=== PATIENT | male | born 1960 | race Caucasian/White ===

== ENCOUNTER 2018-07-23 07:03 | Outpatient (CLI) | payer OTHER, SELFPAY ==
[2018-07-23 07:36] LABS: HCT 40.2 % (40.0-50.0); HGB 13.2 g/dL (13.5-17.5); Mean Corp. HGB Concentration 32.8 g/dL (32.0-36.0); Mean Corpuscular Hemoglobin 31.5 pg (27.0-33.0); Mean Corpuscular Volume 95.9 fL (80-95); Mean Platelet Volume 9.7 fL (8.0-11.0); Platelet Count 225 x1000/uL (130-400); RBC 4.19 m/cumm (4.50-6.00); White Blood Cell Count 6.36 k/cumm (4.4-10.8)
[2018-07-23 08:20] LABS: ALT 41 U/L (12-78); AST 22 U/L (15-37); Albumin 3.3 g/dL (3.4-5.0); Alkaline Phosphatase 76 U/L (46-116); Anion Gap 8.6 mmol/L (3-11); BUN 28 mg/dL (7-18); Bilirubin, Total 0.5 mg/dL (0.2-1.0); CO2 27.4 mmol/L (21.0-32.0); CREATININE 1.27 mg/dL (0.70-1.30); Calcium 8.9 mg/dL (8.5-10.1); Chloride 103 mmol/L (98-107); Cholesterol 199 mg/dL (50-200); Estimated GFR 58.88 (mL/min/1.73m2); Glucose 112 mg/dL (70-100); HDL Cholesterol 59 mg/dL (40-60); LDL CHOLESTEROL 114 mg/dL (<100); Potassium 4.6 mmol/L (3.5-5.1); Sodium 139 mmol/L (136-145); Total Protein 6.3 g/dL (6.4-8.2); Triglyceride 108 mg/dL (30-150)
== END 2018-07-23 07:23 ==
PROVIDERS: PCP Nurse Practitioner; Visit Provider Nurse Practitioner
DX: I10 Essential (primary) hypertension (principal)
CPT/HCPCS: 36415; 80053; 80061; 83721; 85027

== ENCOUNTER 2018-08-18 13:12 | Emergency (ER) | payer OTHER, SELFPAY ==
[2018-08-18 13:16] VITALS: BP 139/78; PULSE 90; RESP 15; TEMP 36.6; O2SAT 95
--- NOTE | 2018-08-18 13:31 | ED.GENADUL_ITS ---
Discharge Plan Disposition Patient Disposition: HOME Discharge Details Chief Complaint: RashLesion Clinical Impression: Herpes zoster Primary Care Provider: Graciela Fowler ED Provider: Benny Mitchell Home Meds and New Rx's Prescriptions: New valacyclovir 1 gram tablet 1,000 mg PO TID 7 Days Qty: 21 RF: 0 Continued hydrochlorothiazide 25 mg tablet 25 mg PO DAILY Qty: 90 RF: 3 lisinopril 40 mg tablet 40 mg PO DAILY Qty: 90 RF: 3 simvastatin 20 mg tablet 20 mg PO DAILY Qty: 90 RF: 3 fluticasone propion-salmeterol [Advair Diskus] 500-50 mcg/dose blister with device 1 inh IH BID Qty: 1 RF: 12 prednisone 10 mg tablet See Rx Instructions PO DAILY Qty: 18 RF: 0 Discharge Instructions Instructions: Shingles (ED) Additional Instructions: You may use difj-onj-ntloeft acetaminophen or Motrin for pain control. You may also apply lgip-ets-jbptcey lidocaine cream to areas of discomfort as well. Please take medication as prescribed and return for any new or significant worsening of symptoms otherwise follow-up with your primary care provider for reassessment. Referrals: Graciela Fowler, COMMUNICATIONS EXECUTIVE [Primary Care Provider] - (For reassessment as needed or if not improving) Medical Decision Making Patient presenting to the emergency department for chief complaint of rash. Patient states 3 to 4 days ago he started noting some left shoulder discomfort in his back which he thought nothing of then today he noticed a reddened erythematous rash underneath his left armpit. Patient does state history of chickenpox as a child and is concerned for herpes zoster. Physical exam is unremarkable for any musculoskeletal injury with patient having full range of motion and no point tenderness to shoulder. There is a erythematous papular rash noted underneath patient's left axilla with patient stating burning sensation and sun sensitivity of the skin radiating around to his back. Given description of symptoms I am concerned for herpes zoster so patient placed up on valacyclovir and encouraged to use tmje-noq-espgghk pain medication along with lidocaine cream for discomfort. Return precautions were discussed otherwise patient to follow-up with primary care provider as needed for reassessment. HPI General Mode of arrival: ambulatory . Date/Time Provider Initiated Documentation: 08/18/18 13:14 . Limitations to Documentation: no limitations . Information obtained by: patient and RN notes reviewed . History of Present Illness 57 year old M presents to the emergency department with the chief complaint of rash, described as moderate, with intensity rated at 5. Quality is described as aching, and is localized to the chest (left chest wall). Patient started experiencing this day(s) (1) and it has been constant. No relieving factors improve symptom(s), No exacerbating factors reported . Patient notes no other symptoms.. Patient did receive the following treatments prior to arrival, none Related Data Home Medications Medication Instructions Recorded Confirmed hydrochlorothiazide 25 mg tablet 25 mg PO DAILY #90 tab 04/23/18 08/18/18 lisinopril 40 mg tablet 40 mg PO DAILY #90 tab-cap 04/23/18 08/18/18 simvastatin 20 mg tablet 20 mg PO DAILY #90 tab-cap 18 08/18/18 fluticasone 500 mcg-salmeterol 50 1 inh IH BID #1 each 07/24/18 08/18/18 mcg/dose blistr powdr for inhalation prednisone 10 mg tablet See Rx Instructions PO DAILY #18 19 07/24/18 tab valacyclovir 1,000 mg PO TID 7 Days #21 tab 08/18/18 Previous Rx's Medication Instructions Recorded hydrochlorothiazide 25 mg tablet 25 mg PO DAILY #90 tab 04/23/18 lisinopril 40 mg tablet 40 mg PO DAILY #90 tab-cap 04/23/18 simvastatin 20 mg tablet 20 mg PO DAILY #90 tab-cap 04/23/18 fluticasone 500 mcg-salmeterol 50 1 inh IH BID #1 each 07/24/18 mcg/dose blistr powdr for inhalation prednisone 10 mg tablet See Rx Instructions PO DAILY #18 07/24/18 tab valacyclovir 1,000 mg PO TID 7 Days #21 tab 08/18/18 Allergies Allergy/AdvReac Type Severity Reaction Status Date / Time No Known Allergies Allergy Verified 08/18/18 13:21 General Stated Complaint: RashLesion CHANDRAKANT: 4 Review of Systems Constitutional Denies fever(s) and Reports malaise Cardiovascular Denies chest pain and Denies dyspnea Respiratory Denies dyspnea Musculoskeletal Reports other (left shoulder pain) Integumentary/Breasts Reports as per HPI and Denies rash PFSH Social History Smoking/Tobacco Use Status: Former Tobacco Use Alcohol Intake: current Alcohol Intake frequency: 0-2 drinks per day Alcohol type: beer Drug use: Never Substance use type: does not use current occupation: [employer] What type of physical activity do you participate in: none Do you feel safe at home: Yes Do you feel safe in your relationship?: Yes Exam Const General: cooperative, no acute distress and not ill appearing Orientation: alert, awake and oriented x3 HENMT Mouth: moist mucous membranes Resp Effort & Inspection: normal respiratory effort, able to speak in complete sentences and no respiratory distress Skin Rashes: rashes noted (Erythematous papular rash noted to left axilla ) Extrem Right upper extremity: normal to inspection, full ROM and normal capillary refill Course Vital Signs Temperature 36.6 C 08/18/18 13:16 Pulse 90 08/18/18 13:16 Respiratory Rate 15 08/18/18 13:16 Blood Pressure 139/78 08/18/18 13:16 Pulse Oximetry 95 08/18/18 13:16 Temperature 36.6 C 08/18/18 13:16 Temperature Source Temporal Artery Scan 08/18/18 13:16 Pulse 90 08/18/18 13:16 Respiratory Rate 15 08/18/18 13:16 Respiratory Effort Non-Labored 08/18/18 13:20 Blood Pressure 139/78 08/18/18 13:16 Blood Pressure Position Sitting 08/18/18 13:16 Pulse Oximetry 95 08/18/18 13:16 Pain Level 5 08/18/18 13:16
== END 2018-08-18 13:54 | disposition home or self-care (01) ==
PROVIDERS: Emergency Provider Nurse Practitioner Family; PCP Nurse Practitioner
DX: B02.9 Zoster without complications (principal)
CPT/HCPCS: 99283

== ENCOUNTER 2019-06-17 07:06 | Outpatient (CLI) | payer OTHER, SELFPAY ==
[2019-06-17 08:05] LABS: ALT 44 U/L (16-63); AST 21 U/L (15-37); Albumin 3.8 g/dL (3.4-5.0); Alkaline Phosphatase 60 U/L (46-116); Anion Gap 6.4 mmol/L (3-11); BUN 28 mg/dL (7-18); Bilirubin, Total 0.6 mg/dL (0.2-1.0); CO2 30.6 mmol/L (21.0-32.0); CREATININE 1.24 mg/dL (0.70-1.30); Calcium 9.3 mg/dL (8.5-10.1); Calculated LDL 164 mg/dL (<100); Chloride 105 mmol/L (98-107); Cholesterol 256 mg/dL (<200); Glucose 112 mg/dL (74-106); HDL Cholesterol 56 mg/dL (40-60); Potassium 4.7 mmol/L (3.5-5.1); Sodium 142 mmol/L (136-145); Total Protein 6.6 g/dL (6.4-8.2); Triglyceride 183 mg/dL (<150)
== END 2019-06-17 07:26 ==
PROVIDERS: PCP Nurse Practitioner; Visit Provider Nurse Practitioner
DX: E78.5 Hyperlipidemia, unspecified (principal); I10 Essential (primary) hypertension
CPT/HCPCS: 36415; 80053; 80061

== ENCOUNTER 2019-10-18 03:00 | Outpatient (CLI) | payer OTHER, SELFPAY ==
--- NOTE | 2019-10-18 | DI.CTLCSR_ITS ---
EXAM: CT CHEST LUNG CANCER SCREEN CLINICAL HISTORY: The patient reportedly has a History of Smoking 30 pack years and presently smokes or has quit the past 15 years, Z87.891. TECHNIQUE: Imaging Protocol: Axial computed tomography images with coronal and sagittal reformatted images were created and reviewed. Low-dose screening protocol. COMPARISON: CR CHEST 2 VIEWS PA,LAT from 08/07/2015 FINDINGS: Tracheobronchial tree: Patent where visualized. Mediastinum and Nathalie: No dominant adenopathy or fluid collection. Pulmonary parenchyma: No consolidation or dominant measurable mass. Mild basilar scarring. Bleb near the right lung base. Lung Nodules: None. Pleura: No effusion or pneumothorax. Heart: The heart is not dilated. Moderate coronary artery calcifications are seen. Aorta: Ascending aorta measures 4.2 cm. Descending aorta normal diameter. Upper abdomen: Left renal cysts. Bones: Degenerative disc changes in the thoracic spine. Soft Tissues: Unremarkable. IMPRESSION: Normal low dose CT lung screening Lung RADS Cat 1 - Negative: No nodules and definitely benign nodules Lung-RADS 1.0 CATEGORIES: Category 0 - Prior chest CT exam(s) being located for comparison. Category 1 - Annual screening in 12 months. No nodules or definitely benign nodules. Category 2 - Annual screening in 12 months. Benign appearance. Nodules with low likelihood of becomin g active cancer. Category 3 - 6-month follow-up. Probably benign. Short-term follow-up suggested. Nodules with low lik elihood of becoming active cancer. Category 4A - 3-month follow-up and CT/PET if >8 mm in size. Suspicious finding. Findings which requi re additional testing. Category 4B - Findings which require additional testing and tissue sampling. Suspicious finding. C Added to Any of the Above - History of prior lung cancer screening. S Added to Any of the Above - Significant unexpected other finding. RADIATION DOSE DELIVERED: 91.61mGy.cm Total DLP DATA REPOSITORY: All CT scans at this facility are submitted to the National Radiology Data Registry (NRDR) Dose Index Registry (DIR) with the [employer] (A[employer]). RADIATION OPTIMIZATION: All CT scans at this facility use at least one of these dose optimization te chniques: automated exposure control; mA and/or kV adjustment per patient size (includes targeted exa ms where dose is matched to clinical indication); or iterative reconstruction.
== END 2019-10-18 03:20 ==
PROVIDERS: PCP Nurse Practitioner; Visit Provider Internal Medicine
DX: Z12.2 Encounter for screening for malignant neoplasm of respiratory organs (principal); Z87.891 Personal history of nicotine dependence
CPT/HCPCS: G0297

== ENCOUNTER 2020-07-22 04:30 | Outpatient (CLI) | payer BC, SELFPAY ==
[2020-07-22 09:07] LABS: HCT 44.4 % (40.0-50.0); HGB 14.8 g/dL (13.5-17.5); MCH 32.2 pg (27.0-33.0); MCHC 33.3 % (32.0-36.0); MCV 96.7 fL (80-95); MPV 9.7 fL (8.0-11.0); Platelet Count 178 10^3/uL (130-400); RBC 4.59 10^6/uL (4.36-5.78); RDW 12.6 % (11.8-14.1); RDW-SD 45.1 fL; WBC 5.75 10^3/uL (4.4-10.8)
[2020-07-22 09:40] LABS: Hemoglobin A1C 5.7 % (<5.7)
[2020-07-22 09:58] LABS: ALT 59 U/L (16-63); AST 31 U/L (15-37); Albumin 3.8 g/dL (3.4-5.0); Alkaline Phosphatase 63 U/L (46-116); Anion Gap 6.4 mmol/L (3-11); BUN 26 mg/dL (7-18); Bilirubin, Total 0.6 mg/dL (0.2-1.0); CO2 31.6 mmol/L (21.0-32.0); CREATININE 1.1 mg/dL (0.70-1.30); Calcium 9.1 mg/dL (8.5-10.1); Calculated LDL 105 mg/dL (<100); Chloride 104 mmol/L (98-107); Cholesterol 191 mg/dL (<200); Glucose 104 mg/dL (74-106); HDL Cholesterol 61 mg/dL (40-60); Potassium 5.1 mmol/L (3.5-5.1); Sodium 142 mmol/L (136-145); Total Protein 6.8 g/dL (6.4-8.2); Triglyceride 127 mg/dL (<150)
== END 2020-07-22 04:31 | disposition home or self-care (01) ==
LOC: LBO 04:30
PROVIDERS: PCP Nurse Practitioner; Visit Provider Nurse Practitioner
DX: E11.9 Type 2 diabetes mellitus without complications (principal); I10 Essential (primary) hypertension; E78.5 Hyperlipidemia, unspecified; G47.33 Obstructive sleep apnea (adult) (pediatric); J44.9 Chronic obstructive pulmonary disease, unspecified
CPT/HCPCS: 36415; 80053; 80061; 85027; 83036

== ENCOUNTER 2020-08-06 01:49 | Outpatient (CLI) | payer BC, SELFPAY ==
[2020-08-07 17:31] LABS: COVID-19 RT-PCR UVMMC Result Negative (Negative)
== END 2020-08-06 01:50 | disposition home or self-care (01) ==
LOC: LBO 01:49
PROVIDERS: PCP Nurse Practitioner; Visit Provider Nurse Practitioner
DX: Z20.822 Contact with and (suspected) exposure to COVID-19 (principal)
CPT/HCPCS: U0003

== ENCOUNTER 2021-12-07 03:28 | Outpatient (CLI) | payer BC, SELFPAY ==
[2021-12-07 08:54] LABS: Hemoglobin A1C 5.9 % (<5.7)
[2021-12-07 10:19] LABS: ALT 48 U/L (16-63); AST 30 U/L (15-37); Albumin 3.8 g/dL (3.4-5.0); Alkaline Phosphatase 54 U/L (46-116); Anion Gap 11.4 mmol/L (3-11); BUN 34 mg/dL (7-18); Bilirubin, Total 0.7 mg/dL (0.2-1.0); CO2 25.6 mmol/L (21.0-32.0); CREATININE 1.3 mg/dL (0.70-1.30); Calcium 9.5 mg/dL (8.5-10.1); Calculated LDL 143 mg/dL (<100); Chloride 102 mmol/L (98-107); Cholesterol 237 mg/dL (<200); Glucose 102 mg/dL (74-106); HDL Cholesterol 61 mg/dL (40-60); Potassium 4.4 mmol/L (3.5-5.1); Sodium 139 mmol/L (136-145); Total Protein 6.9 g/dL (6.4-8.2); Triglyceride 169 mg/dL (<150)
== END 2021-12-07 03:29 | disposition home or self-care (01) ==
LOC: LBO 03:29
PROVIDERS: PCP Nurse Practitioner; Visit Provider Nurse Practitioner
DX: E78.5 Hyperlipidemia, unspecified (principal); I10 Essential (primary) hypertension; R73.09 Other abnormal glucose; Z68.39 Body mass index [BMI] 39.0-39.9, adult; E11.9 Type 2 diabetes mellitus without complications
CPT/HCPCS: 36415; 80053; 80061; 83036

== ENCOUNTER 2023-02-24 02:34 | Outpatient (CLI) | payer BC, SELFPAY ==
[2023-02-24] MEDS: Levalbuterol HFA 15 GM INH 4 PUFF IH (16:35)
[2023-02-24] MEDS: Inhaler, Assist Device 1 EACH MC (16:35)
--- NOTE | 2023-02-27 13:55 | W.PFT ---
Date of service: 02/24/23 Time of Service: 15:20 Pulmonary Function Test Result Indications: COPD Interpretation Spirometry: There is severe airflow limitation. There is not a 200cc increase in FEV1, but there was a 12% increase. Lung Volumes: There is significant air trapping Diffusion Capacity: Mildly reduced diffusion Airway Pressure: Increased airways resistance Impression Severe airflow obstruction with air trapping and a reduced diffusion which can be seen in COPD with emphysema. Clinical Correlation therefore is recommended.
== END 2023-02-24 02:35 | disposition home or self-care (01) ==
LOC: RT 02:36
PROVIDERS: PCP Nurse Practitioner; Visit Provider Physician Assistant Surgical
DX: J44.9 Chronic obstructive pulmonary disease, unspecified (principal)
CPT/HCPCS: 94060; 94726; 94729

== ENCOUNTER 2025-04-05 13:03 | Observation (INO) | payer OTHER, SELFPAY ==
[2025-04-05] VITALS (47 sets, daily range): BP systolic 106–215; BP diastolic 56–177; PULSE 68–102; RESP 13–23; TEMP 36.7–37.2; O2SAT 84–99
--- NOTE | 2025-04-05 13:45 | DI.RAD_ITS ---
Exam(s) XR CHEST 2V PA LATERAL EXAM: XR CHEST 2V PA LATERAL CLINICAL HISTORY: shortness of breath, fever. TECHNIQUE: 2D digital imaging was performed. COMPARISON: CR,XR XR CHEST 2V PA LATERAL from 06/04/2022 FINDINGS: 2 views: Chest leads in place. Heart size is normal. The mediastinum is not widened. Mild increased markings in the lower right lung field compound by overlying rib shadows. Minimal increased markings in left lung base. Slight blunting of left costophrenic angle may indicate a small amount of pleural fluid. No pulmonary edema. No pneumothorax. No fractures evident. IMPRESSION: Mild increased right lung markings may represent mild subtle infiltrate in the lower right lung field. No obvious ipsilateral pleuraleffusion. Mild blunting of the opposite-left costophrenic angle which may indicate a small amount left pleural fluid. DATA REPOSITORY: RADIATION DOSE DELIVERED:
--- NOTE | 2025-04-05 13:45 | RT.EKG_ITS ---
APPROVED REPORT Exam: Resting ECG Reason for Exam: shortness of breath, weakness Patient Location: E HR:83 bpm ECG Measurements Heart Rate 83 AXIS UT 156 P 49 QRSd 88 QRS 210 QT 350 T 52 QTc 411 Conclusion Sinus rhythm...normal P axis, V-rate 60- 99 Inferior infarct, old...Q >35mS, II III aVF No STEMI
[2025-04-05 14:17] LABS: COVID-19 PCR Negative (Negative); RSV PCR Negative (Negative)
[2025-04-05 14:26] LABS: Abs Immature Grans 0.02 10^3/uL (0.0-0.06); HCT 43.8 % (40.0-50.0); HGB 14.9 g/dL (13.5-17.5); Immature Grans % 0.2 %; MCH 31.6 pg (27.0-33.0); MCHC 34.0 % (32.0-36.0); MCV 93 fL (80-95); MPV 9.8 fL (8.0-11.0); Platelet Count 167 10^3/uL (130-400); RBC 4.71 10^6/uL (4.36-5.78); RDW 12.4 % (11.8-14.1); RDW-SD 42.9 fL; WBC 9.02 10^3/uL (4.4-10.8)
[2025-04-05 14:27] LABS: BE (Venous) 7 mmol/L (-2-3); HCO3 (Venous) 31 mmol/L (23-28); O2 Sat (Venous) 60 %; TCO2 (Venous) 28 mmol/L (24-29); pCO2 (Venous) 51 mmHg (41-51); pO2 (Venous) 30 mmHg
[2025-04-05] MEDS: Normal Saline 500 ML IV (14:33)
[2025-04-05] MEDS: Acetaminophen 500 MG TAB PO (14:33)
[2025-04-05] MEDS: Albuterol/Ipratropium 3 ML UPD VIAL 6 ML UPD (14:34)
[2025-04-05] MEDS: methylPREDNISolone SUCC 125 MG VIAL IVP (14:34)
[2025-04-05 14:47] LABS: Troponin I 8 ng/L (<54)
[2025-04-05 14:49] LABS: ALT 32 U/L (10-49); AST 30 U/L (<34); Albumin 4.3 g/dL (3.2-5.0); Alkaline Phosphatase 70 U/L (46-116); Anion Gap 6.5 mmol/L (3-11); BUN 18 mg/dL (9-23); Bilirubin, Total 0.50 mg/dL (0.2-1.2); CO2 30.5 mmol/L (20.0-31.0); Calcium 9.0 mg/dL (8.3-10.6); Chloride 101 mmol/L (98-107); Glucose 99 mg/dL (74-106); Potassium 3.7 mmol/L (3.5-5.1); Sodium 138 mmol/L (136-145); Total Protein 6.9 g/dL (5.7-8.2)
[2025-04-05] MEDS: cefTRIAXone 1 GM/50 ML BAG IVPB (15:34)
[2025-04-05] MEDS: DOXYCYCLINE 100 MG in Normal Saline 100 ML IVPB (15:35)
[2025-04-05] MEDS: Albuterol/Ipratropium 3 ML UPD VIAL UPD ×2 (15:35→19:46)
[2025-04-05 15:42] LABS: Troponin I 7 ng/L (<54)
--- NOTE | 2025-04-05 15:46 | ED.GENADUL_ITS ---
Discharge Plan Disposition Patient Disposition: Admit to [facility] Condition: Serious Discharge Details Clinical Impression: Pneumonia, Acute hypoxic respiratory failure Primary Care Provider: Graciela Fowler ED Provider: Jeane Ambrosio Home Meds and New Rx's Prescriptions: No Action simvastatin 20 mg tablet 20 mg PO DAILY Qty: 90 3RF bisacodyl [Dulcolax (bisacodyl)] 1 tab PO DAILY PRN albuterol sulfate 90 mcg/actuation HFA aerosol inhaler 2 puff inhalation Q6H PRN (Reason: shortness of breath or wheezing) Qty: 8.5 1RF Trelegy Ellipta 100-62.5-25 mcg blister with device 1 inh inhalation DAILY Qty: 60 12RF Zepbound 12.5 mg/0.5 mL pen injector 12.5 mg subcut QWEEK Qty: 2 5RF Zepbound 10 mg/0.5 mL pen injector 10 mg subcut QWEEK Qty: 2 0RF lisinopril 40 mg tablet See Rx Instructions .ROUTE .COMPLEX Qty: 90 3RF Dose Instruction: TAKE ONE TABLET BY MOUTH EVERY DAY Rx Instructions: TAKE ONE TABLET BY MOUTH EVERY DAY hydrochlorothiazide 25 mg tablet 25 mg PO DAILY Qty: 90 3RF HPI General Date/Time Provider Initiated Documentation: 04/05/25 13:05 . HPI Narrative: This 64-year-old male with history of COPD, hyperlipidemia, former smoker presents with report of shortness of breath and chills and weakness for the past 2 days. Denies any calf pain or swelling. Does not currently smoke or drink alcohol. Has used his inhalers this morning with some mild relief in symptoms was having difficulty breathing while shopping earlier today. He states he is not for like this for a while. Denies known sick contacts. Denies history of coagulopathy or recent flights surgeries or long drives. Related Data Home Medications ?Medication ?Instructions ?Recorded ?Confirmed albuterol sulfate 90 mcg/actuation 2 puff inhalation Q 6H PRN 12/18/23 04/05/25 aerosol inhaler shortness of breath or wheez ing #8.5 grams simvastatin 20 mg tablet 20 mg PO DAILY #90 tab-caps 04/03/24 04/05/25 bisacodyl 1 tab PO DAILY PRN 10/04/24 04/05/25 fluticasone fur. 100 mcg-umeclid 1 inh inhalation PHYLLIS Y #60 ea 10/29/24 04/05/25 62.5 mcg-vilant 25 mcg inhalat.powder (Trelegy Ellipta) tirzepatide (weight loss) 12.5 12.5 mg (0.5 mL) subcut QWEEK #2 mL 12/17/24 04/05/25 mg/0.5 mL subcutaneous pen injector (Zepbound) tirzepatide (weight loss) 10 10 mg (0.5 mL) subcut QWE EK #2 mL 03/14/25 04/05/25 mg/0.5 mL subcutaneous pen injector (Zepbound) hydrochlorothiazide 25 mg tablet 25 mg PO DAILY #90 ta bs 03/21/25 04/05/25 lisinopril 40 mg tablet See Rx Instructions .Route 1 05/21/24 04/05/25 .COMPLEX #90 tabs Previous Rx's ?Medication ?Instructions ?Recorded albuterol sulfate 90 mcg/actuation 2 puff inhalation Q 6H PRN 12/18/23 aerosol inhaler shortness of breath or wheez ing #8.5 grams simvastatin 20 mg tablet 20 mg PO DAILY #90 tab-caps 04/03/24 fluticasone fur. 100 mcg-umeclid 1 inh inhalation PHYLLIS Y #60 ea 10/29/24 62.5 mcg-vilant 25 mcg inhalat.powder (Trelegy Ellipta) tirzepatide (weight loss) 12.5 12.5 mg (0.5 mL) subcut QWEEK #2 mL 12/17/24 mg/0.5 mL subcutaneous pen injector (Zepbound) tirzepatide (weight loss) 10 10 mg (0.5 mL) subcut QWE EK #2 mL 03/14/25 mg/0.5 mL subcutaneous pen injector (Zepbound) hydrochlorothiazide 25 mg tablet 25 mg PO DAILY #90 ta bs 03/21/25 lisinopril 40 mg tablet See Rx Instructions .Route 1 05/21/24 .COMPLEX #90 tabs Allergies Allergy/AdvReac Type Severity Reaction Status Date / Time umeclidinium (From Anoro AdvReac Unknown throat Verified 04/05/25 16:36 Ellipta) irritation vilanterol (From Anoro AdvReac Unknown throat Verified 04/05/25 16:36 Ellipta) irritation General Stated Complaint: RespSymp CHANDRAKANT: 2 Exam Narrative Exam Narrative: Alert and oriented 64-year-old male diminished lung sounds crackles at base of right lung, no peripheral edema cardiac rate rhythm regular no respiratory distr ess speaking complete sentences Course Vital Signs Vital signs: Vital Signs Temperature 36.9 C 04/05/25 13:04 Pulse 99 H 04/05/25 13:04 Respiratory Rate 22 04/05/25 13:04 Blood Pressure 144/78 H 04/05/25 13:04 Pulse Oximetry 84 L 04/05/25 13:04 Temperature 37.2 C 04/05/25 15:22 Temperature Source Oral 04/05/25 15:22 Pulse 97 H 04/05/25 15:35 Pulse 100 H 04/05/25 15:21 Respiratory Rate 18 04/05/25 15:22 Blood Pressure 142/72 H 04/05/25 15:22 Blood Pressure Mean 95 04/05/25 15:22 Pulse Oximetry 91 L 04/05/25 15:35 Oxygen Delivery Method Nasal Cannula 04/05/25 15:35 Oxygen Flow Rate 1 04/05/25 15:35 Lab/Test Results Lab/Test Results: 04/05/25 14:18 Blood Blood Culture - Pending 04/05/25 13:51 Blood Blood Culture - Pending Laboratory Tests Range/Units 04/05/25 04/05/25 04/05/25 13:25 13:51 14:18 WBC (4.4-10.8) 10^3/uL 9.02 RBC (4.36-5.78) 10^6/uL 4.71 Hgb (13.5-17.5) g/dL 14.9 Hct (40.0-50.0) % 43.8 MCV (80-95) fL 93 MCH (27.0-33.0) pg 31.6 MCHC (32.0-36.0) % 34.0 RDW (11.8-14.1) % 12.4 Plt Count (130-400) 10^3/uL 167 MPV (8.0-11.0) fL 9.8 Immature Gran % % 0.2 Neutrophils % % 81.2 Lymphocytes % % 6.1 Monocytes % % 12.1 Eosinophils % % 0.2 Basophils % % 0.2 Nucleated RBC % (0.0-0.3) % 0.0 Absolute Neutrophils (1.2-6.7) 10^3/uL 7.32 H Absolute Lymphocytes (1.2-3.4) 10^3/uL 0.55 L Absolute Monocytes (0.1-0.8) 10^3/uL 1.09 H Absolute Eosinophils (0.0-0.7) 10^3/uL 0.02 Absolute Basophils (0.0-0.2) 10^3/uL 0.02 VBG pH (7.31-7.41) 7.40 VBG pCO2 (41-51) mmHg 51 VBG pO2 mmHg 30 VBG HCO3 (23-28) mmol/L 31 H VBG Total CO2 (24-29) mmol/L 28 VBG O2 Saturation % 60 VBG Base Excess (-2-3) mmol/L 7 H VBG Lactate Cancelled Sodium (136-145) mmol/L Potassium (3.5-5.1) mmol/L Chloride (98-107) mmol/L Carbon Dioxide (20.0-31.0) mmol/L Anion Gap (3-11) mmol/L BUN (9-23) mg/dL Creatinine (0.73-1.18) mg/dL Est GFR (CKD-EPI 2020) (mL/min/1.73m2) Glucose (74-106) mg/dL Calcium (8.3-10.6) mg/dL Total Bilirubin (0.2-1.2) mg/dL AST (<34) U/L ALT (10-49) U/L Alkaline Phosphatase (46-116) U/L Troponin I (<54) ng/L NT-Pro-B Natriuret Pep (<300) pg/mL Total Protein (5.7-8.2) g/dL Albumin (3.2-5.0) g/dL COVID-19 Source Nasopharynx Cancelled SARS-CoV-2 (PCR) (Negative) Negative Cancelled Influenza Type A (PCR) (Negative) Negative Cancelled Influenza Type B (PCR) (Negative) Negative Cancelled RSV (PCR) (Negative) Negative Cancelled Range/Units 04/05/25 04/05/25 04/05/25 14:18 14:18 14:18 WBC (4.4-10.8) 10^3/uL RBC (4.36-5.78) 10^6/uL Hgb (13.5-17.5) g/dL Hct (40.0-50.0) % MCV (80-95) fL MCH (27.0-33.0) pg MCHC (32.0-36.0) % RDW (11.8-14.1) % Plt Count (130-400) 10^3/uL MPV (8.0-11.0) fL Immature Gran % % Neutrophils % % Lymphocytes % % Monocytes % % Eosinophils % % Basophils % % Nucleated RBC % (0.0-0.3) % Absolute Neutrophils (1.2-6.7) 10^3/uL Absolute Lymphocytes (1.2-3.4) 10^3/uL Absolute Monocytes (0.1-0.8) 10^3/uL Absolute Eosinophils (0.0-0.7) 10^3/uL Absolute Basophils (0.0-0.2) 10^3/uL VBG pH (7.31-7.41) VBG pCO2 (41-51) mmHg VBG pO2 mmHg VBG HCO3 (23-28) mmol/L VBG Total CO2 (24-29) mmol/L VBG O2 Saturation % VBG Base Excess (-2-3) mmol/L VBG Lactate 1.0 Sodium (136-145) mmol/L 138 Potassium (3.5-5.1) mmol/L 3.7 Chloride (98-107) mmol/L 101 Carbon Dioxide (20.0-31.0) mmol/L 30.5 Anion Gap (3-11) mmol/L 6.5 BUN (9-23) mg/dL 18 Creatinine (0.73-1.18) mg/dL 1.05 Est GFR (CKD-EPI 2020) (mL/min/1.73m2) 71.48 Glucose (74-106) mg/dL 99 Calcium (8.3-10.6) mg/dL 9.0 Total Bilirubin (0.2-1.2) mg/dL 0.50 AST (<34) U/L 30 ALT (10-49) U/L 32 Alkaline Phosphatase (46-116) U/L 70 Troponin I (<54) ng/L 8 Cancelled NT-Pro-B Natriuret Pep (<300) pg/mL 69 Cancelled Total Protein (5.7-8.2) g/dL 6.9 Albumin (3.2-5.0) g/dL 4.3 COVID-19 Source SARS-CoV-2 (PCR) (Negative) Influenza Type A (PCR) (Negative) Influenza Type B (PCR) (Negative) RSV (PCR) (Negative) Range/Units 04/05/25 15:15 WBC (4.4-10.8) 10^3/uL RBC (4.36-5.78) 10^6/uL Hgb (13.5-17.5) g/dL Hct (40.0-50.0) % MCV (80-95) fL MCH (27.0-33.0) pg MCHC (32.0-36.0) % RDW (11.8-14.1) % Plt Count (130-400) 10^3/uL MPV (8.0-11.0) fL Immature Gran % % Neutrophils % % Lymphocytes % % Monocytes % % Eosinophils % % Basophils % % Nucleated RBC % (0.0-0.3) % Absolute Neutrophils (1.2-6.7) 10^3/uL Absolute Lymphocytes (1.2-3.4) 10^3/uL Absolute Monocytes (0.1-0.8) 10^3/uL Absolute Eosinophils (0.0-0.7) 10^3/uL Absolute Basophils (0.0-0.2) 10^3/uL VBG pH (7.31-7.41) VBG pCO2 (41-51) mmHg VBG pO2 mmHg VBG HCO3 (23-28) mmol/L VBG Total CO2 (24-29) mmol/L VBG O2 Saturation % VBG Base Excess (-2-3) mmol/L VBG Lactate Sodium (136-145) mmol/L Potassium (3.5-5.1) mmol/L Chloride (98-107) mmol/L Carbon Dioxide (20.0-31.0) mmol/L Anion Gap (3-11) mmol/L BUN (9-23) mg/dL Creatinine (0.73-1.18) mg/dL Est GFR (CKD-EPI 2020) (mL/min/1.73m2) Glucose (74-106) mg/dL Calcium (8.3-10.6) mg/dL Total Bilirubin (0.2-1.2) mg/dL AST (<34) U/L ALT (10-49) U/L Alkaline Phosphatase (46-116) U/L Troponin I (<54) ng/L 7 NT-Pro-B Natriuret Pep (<300) pg/mL Total Protein (5.7-8.2) g/dL Albumin (3.2-5.0) g/dL COVID-19 Source SARS-CoV-2 (PCR) (Negative) Influenza Type A (PCR) (Negative) Influenza Type B (PCR) (Negative) RSV (PCR) (Negative) Medical Decision Making Results: Right lower lobe infiltrate per radiology interpretation of my review CBC VBG troponin flu COVID and RSV all reassuring Assessment and plan: Patient with right lower lobe infiltrate, crackles at base of right lower lobe on assessment and requiring oxygen, desaturation of 89% at rest and with exertion to 86% on room air, placed 1.5 L of oxygen and patient is about 92% in room. States his baseline and is in the mid 90s despite his history of COPD. No suspicion clinically for PE, no chest pain, increased aeration after 3 DuoNebs. Patient received methylprednisone ceftriaxone and Doxy to treat pneumonia and will need admission for respiratory failure and pneumonia. Patient has required oxygen throughout his stay. Patient is agreeable to admission at this time. 500 cc of fluid administered and patient is drinking fluids in the room. Critical Care Time Critical Care Time Attestation: 45 minutes of critical care time secondary to respiratory failure secondary to pneumonia requiring oxygen and 3 DuoNeb administrations, IV antibiotics, telemetry monitoring, admission to the hospital, diagnostic imaging and lab interpretation and review [facility] All Active Problems (Updated 04/05/25 @ 17:15 by AUDREY Lorenzana) Discharge planning issues (Acute) Pneumonia (Acute) Acute hypoxic respiratory failure (Acute) Fatigue (Acute) Screening for prostate cancer (Acute) Former smoker (Acute) Pre-diabetes (Acute) Obesity (Chronic) Adult BMI 39.0-39.9 kg/sq m (Acute 06/23/20) Hyperlipidemia (Acute) Lung cancer screening declined by patient (Acute) Colonoscopy refused (Acute) COPD with exacerbation (Chronic) Never been previously treated with bronchodilators or other COPD medicatons. Ongoing tobacco use. Tobacco use disorder (Chronic) COPD (chronic obstructive pulmonary disease) (Chronic 04/28/13) Severe, FEV1 2020 is 32% Hypertension (Chronic 08/30/11) ALEXANDER (obstructive sleep apnea) (Chronic 07/17/15) BiPAP Family History Mother Hypertension Dementia Father Heart disease CHF Stroke Maternal Grandmother Stroke Social History Smoking/Tobacco Use Status: Former Tobacco Use Quit Date: 04/24/18 Pack-years: 30 Second Hand Exposure: Yes Smoking risk assessment performed?: Yes Alcohol Intake: current Alcohol Intake frequency: 3 or more drinks per day Alcohol type: beer Counseling given: No Drug use: Never Substance use type: does not use Adopted: No Caregiver/Support person: No Foster care: No Household members: spouse Housing: house Number of Children: 5 number of grandchildren: 17 Communication Needs: None Education Level: high school Do you need help understanding health information?: Rarely current occupation: [employer] Pets and animals: No Do you think of yourself as: straight/heterosexual Current gender identity: male What is your relationship status?: How often do you talk on the phone with friends or family?: twice per week How often do you get together with friends or relatives?: decline to answer Do you belong to any clubs or organized social groups?: no Panel score (0-1 are the most socially isolated patients): 1 What type of physical activity do you participate in: none Rupa/Confucianist: Jehovah'S Witness Special rpua needs: No Seatbelt use: sometimes Helmet use: Yes Helmet use: always Drive intox or ride w/intox 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
--- NOTE | 2025-04-05 16:37 | HPE_ITS ---
Date of service: 04/05/25 Time of Service: 16:37 Assessment and Plan Assessment and plan (1) Acute hypoxic respiratory failure: Status: Acute Assessment and plan: Referred to observation on the medical surgical unit Does not meet sepsis criteria Room air sats 89% at rest dropped to 86% with ambulation Workup concerning for a pneumonia with right lower lobe infiltrate and with history of COPD is being treated with antibiotics to cover for pneumonia and steroids for COPD exacerbation Wean oxygen as able Scheduled DuoNebs with albuterol as needed Continue home inhaler (2) Pneumonia: Status: Acute Assessment and plan: Continue day 1 of ceftriaxone and doxycycline Add Mucinex twice daily Incentive spirometer and Acapella (3) COPD with exacerbation: Status: Chronic Assessment and plan: Steroid burst Continue DuoNeb scheduled with albuterol as needed Continue home Trelegy Wean oxygen as able COPD exacerbation in the setting of an acute pneumonia (4) Tobacco use disorder: Status: Chronic Assessment and plan: Quit smoking 6 years ago (5) Hyperlipidemia: Status: Acute Assessment and plan: Continue statin (6) ALEXANDER (obstructive sleep apnea): Status: Chronic Assessment and plan: Wears a CPAP at night unable to bring to the hospital States he wears oxygen at nighttime when hospitalized (7) Obesity: Status: Chronic Assessment and plan: On tirzepatide outpatient (8) Discharge planning issues: Status: Acute Assessment and plan: DVT prophylaxis enoxaparin daily Anticipated discharge to home once he is weaned off oxygen no services anticipated Discussed with Dr. Sánchez History of Present Illness Narrative: Patient presents to the emergency department for complaints of cough with increased sputum production and shortness of breath. Denies any fever or bodyaches. States he had a coworker with similar symptoms. He states his symptoms started 2 days ago and have progressively gotten worse. He states that this is consistent with episode of pneumonia and/or COPD exacerbation that he has experienced in the past. His workup in the emergency department did show acute hypoxic respiratory failure with a room air sat of 89% and ambulatory pulse ox at 86%. Imaging concerning for a right lower lobe pneumonia. He was started on antibiotics ceftriaxone and doxycycline in addition to IV steroids for exacerbation of COPD. He has not smoked for 6 years. He does wear his CPAP at night. His will not be able to bring that in tonight he states typically he just wears oxygen when hospitalized. Review of Systems All systems reviewed & are unremarkable except as noted in HPI and below PFSH All Active Problems (Updated 04/05/25 @ 16:50 by Em Story NP) Discharge planning issues (Acute) Pneumonia (Acute) Acute hypoxic respiratory failure (Acute) Fatigue (Acute) Screening for prostate cancer (Acute) Former smoker (Acute) Pre-diabetes (Acute) Obesity (Chronic) Adult BMI 39.0-39.9 kg/sq m (Acute 06/23/20) Hyperlipidemia (Acute) Lung cancer screening declined by patient (Acute) Colonoscopy refused (Acute) COPD with exacerbation (Chronic) Never been previously treated with bronchodilators or other COPD medicatons. Ongoing tobacco use. Tobacco use disorder (Chronic) COPD (chronic obstructive pulmonary disease) (Chronic 04/28/13) Severe, FEV1 2020 is 32% Hypertension (Chronic 08/30/11) ALEXANDER (obstructive sleep apnea) (Chronic 07/17/15) BiPAP Family History Mother Hypertension Dementia Father Heart disease CHF Stroke Maternal Grandmother Stroke Social History Smoking/Tobacco Use Status: Former Tobacco Use Quit Date: 04/24/18 Pack-years: 30 Second Hand Exposure: Yes Smoking risk assessment performed?: Yes Alcohol Intake: current Alcohol Intake frequency: 3 or more drinks per day Alcohol type: beer Counseling given: No Drug use: Never Substance use type: does not use Adopted: No Caregiver/Support person: No Foster care: No Household members: spouse Housing: house Number of Children: 5 number of grandchildren: 17 Communication Needs: None Education Level: high school Do you need help understanding health information?: Rarely current occupation: [employer] Pets and animals: No Do you think of yourself as: straight/heterosexual Current gender identity: male What is your relationship status?: How often do you talk on the phone with friends or family?: twice per week How often do you get together with friends or relatives?: decline to answer Do you belong to any clubs or organized social groups?: no Panel score (0-1 are the most socially isolated patients): 1 What type of physical activity do you participate in: none Rupa/Baptism: Moravian Special rupa needs: No Seatbelt use: sometimes Helmet use: Yes Helmet use: always Drive intox or ride w/intox contract driver: No Working smoke detector in home: Yes Carbon monox detector in home: Yes Do you feel safe at home: Yes Do you feel safe in your relationship?: Yes Meds Allergies and Home Medications Allergies Allergy/AdvReac Type Severity Reaction Status Date / Time umeclidinium (From Anoro AdvReac Unknown throat Verified 04/05/25 16:36 Ellipta) irritation vilanterol (From Anoro AdvReac Unknown throat Verified 04/05/25 16:36 Ellipta) irritation Home Medications ?Medication ?Instructions ?Recorded ?Confirmed ?Type albuterol sulfate 90 mcg/actuation 2 puff inhalation Q 6H PRN 12/18/23 04/05/25 Rx aerosol inhaler shortness of breath or wheez ing #8.5 grams simvastatin 20 mg tablet 20 mg PO DAILY #90 tab-caps 04/03/24 04/05/25 Rx bisacodyl 1 tab PO DAILY PRN 10/04/24 04/05/25 History fluticasone fur. 100 mcg-umeclid 1 inh inhalation PHYLLIS Y #60 ea 10/29/24 04/05/25 Rx 62.5 mcg-vilant 25 mcg inhalat.powder (Trelegy Ellipta) tirzepatide (weight loss) 12.5 12.5 mg (0.5 mL) subcut QWEEK #2 mL 12/17/24 04/05/25 Rx mg/0.5 mL subcutaneous pen injector (Zepbound) tirzepatide (weight loss) 10 10 mg (0.5 mL) subcut QWE EK #2 mL 03/14/25 04/05/25 Rx mg/0.5 mL subcutaneous pen injector (Zepbound) hydrochlorothiazide 25 mg tablet 25 mg PO DAILY #90 ta bs 03/21/25 04/05/25 Rx lisinopril 40 mg tablet See Rx Instructions .Route 1 05/21/24 04/05/25 Rx .COMPLEX #90 tabs Exam Narrative Exam Narrative: Obese male of stated age no acute distress face is flush head is atraumatic eyes nonicteric noninjected oral mucosa is slightly dry neck full range of motion respirations are even and unlabored no wheezing no coarse of breath sounds noted diminished in the bases cardiovascular regular rate and rhythm abdomen is distended round firm nontender moves all extremities equally neurologic he is awake alert oriented no focal deficits psychiatric appropriate mood and affect Results Labs 04/05/25 14:18 04/05/25 14:18 Labs: Laboratory Results - last 24 hr 04/05/25 04/05/25 04/05/25 13:25 13:51 14:18 WBC 9.02 RBC 4.71 Hgb 14.9 Hct 43.8 MCV 93 MCH 31.6 MCHC 34.0 RDW 12.4 Plt Count 167 MPV 9.8 Immature Gran % 0.2 Neutrophils % 81.2 Lymphocytes % 6.1 Monocytes % 12.1 Eosinophils % 0.2 Basophils % 0.2 Nucleated RBC % 0.0 Absolute Neutrophils 7.32 H Absolute Lymphocytes 0.55 L Absolute Monocytes 1.09 H Absolute Eosinophils 0.02 Absolute Basophils 0.02 VBG pH 7.40 VBG pCO2 51 VBG pO2 30 VBG HCO3 31 H VBG Total CO2 28 VBG O2 Saturation 60 VBG Base Excess 7 H VBG Lactate Cancelled Sodium Potassium Chloride Carbon Dioxide Anion Gap BUN Creatinine Est GFR (CKD-EPI 2020) Glucose Calcium Total Bilirubin AST ALT Alkaline Phosphatase Troponin I NT-Pro-B Natriuret Pep Total Protein Albumin COVID-19 Source Nasopharynx Cancelled SARS-CoV-2 (PCR) Negative Cancelled Influenza Type A (PCR) Negative Cancelled Influenza Type B (PCR) Negative Cancelled RSV (PCR) Negative Cancelled 04/05/25 04/05/25 04/05/25 14:18 14:18 14:18 WBC RBC Hgb Hct MCV MCH MCHC RDW Plt Count MPV Immature Gran % Neutrophils % Lymphocytes % Monocytes % Eosinophils % Basophils % Nucleated RBC % Absolute Neutrophils Absolute Lymphocytes Absolute Monocytes Absolute Eosinophils Absolute Basophils VBG pH VBG pCO2 VBG pO2 VBG HCO3 VBG Total CO2 VBG O2 Saturation VBG Base Excess VBG Lactate 1.0 Sodium 138 Potassium 3.7 Chloride 101 Carbon Dioxide 30.5 Anion Gap 6.5 BUN 18 Creatinine 1.05 Est GFR (CKD-EPI 2020) 71.48 Glucose 99 Calcium 9.0 Total Bilirubin 0.50 AST 30 ALT 32 Alkaline Phosphatase 70 Troponin I 8 Cancelled NT-Pro-B Natriuret Pep 69 Cancelled Total Protein 6.9 Albumin 4.3 COVID-19 Source SARS-CoV-2 (PCR) Influenza Type A (PCR) Influenza Type B (PCR) RSV (PCR) 04/05/25 15:15 WBC RBC Hgb Hct MCV MCH MCHC RDW Plt Count MPV Immature Gran % Neutrophils % Lymphocytes % Monocytes % Eosinophils % Basophils % Nucleated RBC % Absolute Neutrophils Absolute Lymphocytes Absolute Monocytes Absolute Eosinophils Absolute Basophils VBG pH VBG pCO2 VBG pO2 VBG HCO3 VBG Total CO2 VBG O2 Saturation VBG Base Excess VBG Lactate Sodium Potassium Chloride Carbon Dioxide Anion Gap BUN Creatinine Est GFR (CKD-EPI 2020) Glucose Calcium Total Bilirubin AST ALT Alkaline Phosphatase Troponin I 7 NT-Pro-B Natriuret Pep Total Protein Albumin COVID-19 Source SARS-CoV-2 (PCR) Influenza Type A (PCR) Influenza Type B (PCR) RSV (PCR) Last Vital Signs Temp 37.2 C 04/05/25 15:33 Pulse 91 H 04/05/25 15:50 Resp 14 04/05/25 15:50 BP 126/67 04/05/25 15:45 Pulse Ox 98 04/05/25 15:50 VTE Prohylaxis Risk Level: Moderate/High Risk Contraindications: None Prophylaxis: Pharmacologic and Mechanical Time Spent Time spent with Patient: 40-54 minutes Time was spent: preparing to see the patient(eg.review tests), obtaining and/or reviewing separately otained hiistory, ordering medications,tests, procedures, indepentently interpreting results and counseling the patient
[2025-04-05 17:20] LABS: Procalcitonin < 0.10 ng/mL
--- NOTE | 2025-04-05 17:44 | W.PC.ACHO ---
Registration Status: REG ER Primary Language: Preferred Language: Divehi ED Information & Data Chief Complaint RespSymp 04/05/25 15:48 Triage Note Pt complaining of SOB/ 04/05/25 13:04 chills for 2 days Most Recent Vital Signs Temperature 98.9 F 04/05/25 15:33 Temperature Source Oral 04/05/25 15:22 Pulse 98 H 04/05/25 17:30 Pulse 94 H 04/05/25 16:30 Respiratory Rate 17 04/05/25 16:23 Blood Pressure 141/68 H 04/05/25 16:46 Blood Pressure Mean 91 04/05/25 16:46 Pulse Oximetry 91 L 04/05/25 17:30 Oxygen Delivery Method Nasal Cannula 04/05/25 15:35 Oxygen Flow Rate 1 04/05/25 15:35 Allergies umeclidinium (From Anoro Ellipta) Adverse Reaction (Unknown, Verified 04/05/25 16:36) throat irritation note dated 10/10/19 V.[place] vilanterol (From Anoro Ellipta) Adverse Reaction (Unknown, Verified 04/05/25 16:36) throat irritation note dated 10/10/19 [facility].[place] Precautions Isolation PUI 04/05/25 13:29 IV IV Catheter Type [Right Saline Lock Antecubital] IV Catheter Gauge [Right 18 Antecubital] Diagnostics 04/05/25 04/05/25 04/05/25 Range/Units 15:15 14:18 14:18 WBC (4.4-10.8) 10^3/uL RBC (4.36-5.78) 10^6/uL Hgb (13.5-17.5) g/dL Hct (40.0-50.0) % MCV (80-95) fL MCH (27.0-33.0) pg MCHC (32.0-36.0) % RDW (11.8-14.1) % Plt Count (130-400) 10^3/uL MPV (8.0-11.0) fL Immature Gran % % Neutrophils % % Lymphocytes % % Monocytes % % Eosinophils % % Basophils % % Nucleated RBC % (0.0-0.3) % Absolute Neutrophils (1.2-6.7) 10^3/uL Absolute Lymphocytes (1.2-3.4) 10^3/uL Absolute Monocytes (0.1-0.8) 10^3/uL Absolute Eosinophils (0.0-0.7) 10^3/uL Absolute Basophils (0.0-0.2) 10^3/uL VBG pH (7.31-7.41) VBG pCO2 (41-51) mmHg VBG pO2 mmHg VBG HCO3 (23-28) mmol/L VBG Total CO2 (24-29) mmol/L VBG O2 Saturation % VBG Base Excess (-2-3) mmol/L VBG Lactate Sodium (136-145) mmol/L Potassium (3.5-5.1) mmol/L Chloride (98-107) mmol/L Carbon Dioxide (20.0-31.0) mmol/L Anion Gap (3-11) mmol/L BUN (9-23) mg/dL Creatinine (0.73-1.18) mg/dL Est GFR (CKD-EPI 2020) (mL/min/1.73m2) Glucose (74-106) mg/dL Calcium (8.3-10.6) mg/dL Total Bilirubin (0.2-1.2) mg/dL AST (<34) U/L ALT (10-49) U/L Alkaline Phosphatase (46-116) U/L Troponin I 7 Cancelled (<54) ng/L NT-Pro-B Natriuret Pep Cancelled 69 (<300) pg/mL Total Protein 6.9 (5.7-8.2) g/dL Albumin 4.3 (3.2-5.0) g/dL Procalcitonin < 0.10 ng/mL COVID-19 Source SARS-CoV-2 (PCR) (Negative) Influenza Type A (PCR) (Negative) Influenza Type B (PCR) (Negative) RSV (PCR) (Negative) 04/05/25 04/05/25 04/05/25 Range/Units 14:18 14:18 13:51 WBC 9.02 (4.4-10.8) 10^3/uL RBC 4.71 (4.36-5.78) 10^6/uL Hgb 14.9 (13.5-17.5) g/dL Hct 43.8 (40.0-50.0) % MCV 93 (80-95) fL MCH 31.6 (27.0-33.0) pg MCHC 34.0 (32.0-36.0) % RDW 12.4 (11.8-14.1) % Plt Count 167 (130-400) 10^3/uL MPV 9.8 (8.0-11.0) fL Immature Gran % 0.2 % Neutrophils % 81.2 % Lymphocytes % 6.1 % Monocytes % 12.1 % Eosinophils % 0.2 % Basophils % 0.2 % Nucleated RBC % 0.0 (0.0-0.3) % Absolute Neutrophils 7.32 H (1.2-6.7) 10^3/uL Absolute Lymphocytes 0.55 L (1.2-3.4) 10^3/uL Absolute Monocytes 1.09 H (0.1-0.8) 10^3/uL Absolute Eosinophils 0.02 (0.0-0.7) 10^3/uL Absolute Basophils 0.02 (0.0-0.2) 10^3/uL VBG pH 7.40 (7.31-7.41) VBG pCO2 51 (41-51) mmHg VBG pO2 30 mmHg VBG HCO3 31 H (23-28) mmol/L VBG Total CO2 28 (24-29) mmol/L VBG O2 Saturation 60 % VBG Base Excess 7 H (-2-3) mmol/L VBG Lactate 1.0 Cancelled Sodium 138 (136-145) mmol/L Potassium 3.7 (3.5-5.1) mmol/L Chloride 101 (98-107) mmol/L Carbon Dioxide 30.5 (20.0-31.0) mmol/L Anion Gap 6.5 (3-11) mmol/L BUN 18 (9-23) mg/dL Creatinine 1.05 (0.73-1.18) mg/dL Est GFR (CKD-EPI 2020) 71.48 (mL/min/1.73m2) Glucose 99 (74-106) mg/dL Calcium 9.0 (8.3-10.6) mg/dL Total Bilirubin 0.50 (0.2-1.2) mg/dL AST 30 (<34) U/L ALT 32 (10-49) U/L Alkaline Phosphatase 70 (46-116) U/L Troponin I 8 (<54) ng/L NT-Pro-B Natriuret Pep (<300) pg/mL Total Protein (5.7-8.2) g/dL Albumin (3.2-5.0) g/dL Procalcitonin ng/mL COVID-19 Source Cancelled SARS-CoV-2 (PCR) Cancelled (Negative) Influenza Type A (PCR) Cancelled (Negative) Influenza Type B (PCR) Cancelled (Negative) RSV (PCR) Cancelled (Negative) 04/05/25 Range/Units 13:25 WBC (4.4-10.8) 10^3/uL RBC (4.36-5.78) 10^6/uL Hgb (13.5-17.5) g/dL Hct (40.0-50.0) % MCV (80-95) fL MCH (27.0-33.0) pg MCHC (32.0-36.0) % RDW (11.8-14.1) % Plt Count (130-400) 10^3/uL MPV (8.0-11.0) fL Immature Gran % % Neutrophils % % Lymphocytes % % Monocytes % % Eosinophils % % Basophils % % Nucleated RBC % (0.0-0.3) % Absolute Neutrophils (1.2-6.7) 10^3/uL Absolute Lymphocytes (1.2-3.4) 10^3/uL Absolute Monocytes (0.1-0.8) 10^3/uL Absolute Eosinophils (0.0-0.7) 10^3/uL Absolute Basophils (0.0-0.2) 10^3/uL VBG pH (7.31-7.41) VBG pCO2 (41-51) mmHg VBG pO2 mmHg VBG HCO3 (23-28) mmol/L VBG Total CO2 (24-29) mmol/L VBG O2 Saturation % VBG Base Excess (-2-3) mmol/L VBG Lactate Sodium (136-145) mmol/L Potassium (3.5-5.1) mmol/L Chloride (98-107) mmol/L Carbon Dioxide (20.0-31.0) mmol/L Anion Gap (3-11) mmol/L BUN (9-23) mg/dL Creatinine (0.73-1.18) mg/dL Est GFR (CKD-EPI 2020) (mL/min/1.73m2) Glucose (74-106) mg/dL Calcium (8.3-10.6) mg/dL Total Bilirubin (0.2-1.2) mg/dL AST (<34) U/L ALT (10-49) U/L Alkaline Phosphatase (46-116) U/L Troponin I (<54) ng/L NT-Pro-B Natriuret Pep (<300) pg/mL Total Protein (5.7-8.2) g/dL Albumin (3.2-5.0) g/dL Procalcitonin ng/mL COVID-19 Source Nasopharynx SARS-CoV-2 (PCR) Negative (Negative) Influenza Type A (PCR) Negative (Negative) Influenza Type B (PCR) Negative (Negative) RSV (PCR) Negative (Negative) 04/05/25 17:20 Blood Culture - Pending Blood 04/05/25 14:18 Blood Culture - Pending Blood Intake and Output - 24 Hour Total 04/05/25 13:03 thru 04/05/25 16:35 Intake Total 660 Balance 660 Weight 236 lb 15.986 oz Intake: IV 660 Falls Risk Assessment Contributing Factors No Factors 04/05/25 13:30 Fall Total Score 0 04/05/25 13:30 Level of Risk Standard/Low Risk 04/05/25 13:30 Problems (Last Reviewed 02/13/23 @ 08:01 by Linad Solorio LPN) Discharge planning issues (Acute) Pneumonia (Acute) Acute hypoxic respiratory failure (Acute) Obesity (Chronic) Hyperlipidemia (Acute) COPD with exacerbation (Chronic) Tobacco use disorder (Chronic) ALEXANDER (obstructive sleep apnea) (Chronic 07/17/15) Attestation Statement: By documenting the first initial, last name, and credentials of the reporting nurse below, both parties acknowledge that all relevant information regarding the patient handoff has been communicated, and that all questions have been addressed to ensure continuity and safety of care. Additional Patient Information/Comments: Report Received From: Caterina Miranda RN
--- NOTE | 2025-04-05 18:24 | NUR.NOTE ---
Nursing Note: pt admitted from ER via WC on O2 1L sats 92% pt alert and oriented x 4 denies SOB full admission done skin check done skin dry but intact pt offered no complaints urine pending collection call erickson at side safety maintained
[2025-04-05 19:47] LABS: Glucose Negative (Negative)
[2025-04-05 20:03] LABS: C & S Indicated? No; RBC 0-2 HPF (0-2); WBC 0-2 HPF (0-5)
[2025-04-05] MEDS: Doxycycline Hyclate 100 MG CAP PO (20:05)
[2025-04-05] MEDS: guaiFENesin 600 MG TABCR PO (20:05)
[2025-04-06 04:08] VITALS: BP 115/73; PULSE 62; RESP 16; TEMP 36.2; O2SAT 97
[2025-04-06 06:53] LABS: Anion Gap 6.2 mmol/L (3-11); BUN 17 mg/dL (9-23); CO2 27.8 mmol/L (20.0-31.0); Calcium 8.6 mg/dL (8.3-10.6); Chloride 102 mmol/L (98-107); Glucose 140 mg/dL (74-106); Potassium 4.0 mmol/L (3.5-5.1); Sodium 136 mmol/L (136-145)
[2025-04-06 07:06] VITALS: BP 129/81; PULSE 59; RESP 18; TEMP 36.6; O2SAT 95
[2025-04-06 07:10] LABS: Abs Immature Grans 0.03 10^3/uL (0.0-0.06); HCT 42.2 % (40.0-50.0); HGB 14.6 g/dL (13.5-17.5); Immature Grans % 0.4 %; MCH 32.2 pg (27.0-33.0); MCHC 34.6 % (32.0-36.0); MCV 93 fL (80-95); MPV 10.4 fL (8.0-11.0); Platelet Count 150 10^3/uL (130-400); RBC 4.53 10^6/uL (4.36-5.78); RDW 12.5 % (11.8-14.1); RDW-SD 42.9 fL; WBC 8.35 10^3/uL (4.4-10.8)
--- NOTE | 2025-04-06 07:34 | PDOC.CMIN ---
Date of service: 04/06/25 Time of Service: 07:34 Care Management Initial Assmt Initial Assessment Reason for Hospitalization: hypoxic respiratory failure Functional Status/Living Situation Patient Presentation: Cosme was sitting up in bed and awake when CM met with him. He presented to the ED yesterday afternoon with report of shortness of breath, chills and weakness. Per report, plan to wean oxygen as stable. Advance Directives Advance Directives: Do you have an Advance Directive: N 11/04/21, 16:16 AD On File at [facility]: N 11/04/21, 16:16 Date Asked 04/05/25 04/05/25, 13:06 AD Date Reviewed COLST On File at [facility] COLST Date Scanned Code Status Resuscitation Status Full Code Care Team Visit Care Team Role Provider Type Em Story, ROMERO NURSE PRACTITIONER Graciela Fowler, ROMERO Primary Care Provider NURSE PRACTITIONER AUDREY Lorenzana Emergency Provider [facility] Reggie Sánchez Admit Provider [facility] STAFF PHYSICIAN Attending Provider Social Determinants of Health Screening Social Determinants of health last assessed in clinic: 04/05/25 Will the Patient Participate in the Screening?: Yes Do you worry about having a steady place to live?: no Problems where you live: no known problems In the past 12 months, have you had to go without electric, gas, oil or water in your home?: no Has lack of transportation kept you from medical appointments or from doing things needed for daily living?: no Has anyone in your life made you feel unsafe or unsupported?: no How hard is it for you to pay for the very basics like food, housing, medical care, and heating? Would you say it is:: Not hard at all Do you want help finding or keeping work or a job?: I do not need or want help If for any reason you need help with day-to-day activities such as bathing, preparing meals, shopping, managing finances, etc., do you get the help you need?: I don?t need any help How often do you feel lonely or isolated from those around you?: Never Do you speak a language other than Argentine at home?: No Does the patient want assistance with any of the above?: No PFSH All Active Problems (Updated 04/05/25 @ 17:15 by AUDREY Lorenzana) Discharge planning issues (Acute) Pneumonia (Acute) Acute hypoxic respiratory failure (Acute) Fatigue (Acute) Screening for prostate cancer (Acute) Former smoker (Acute) Pre-diabetes (Acute) Obesity (Chronic) Adult BMI 39.0-39.9 kg/sq m (Acute 06/23/20) Hyperlipidemia (Acute) Lung cancer screening declined by patient (Acute) Colonoscopy refused (Acute) COPD with exacerbation (Chronic) Never been previously treated with bronchodilators or other COPD medicatons. Ongoing tobacco use. Tobacco use disorder (Chronic) COPD (chronic obstructive pulmonary disease) (Chronic 04/28/13) Severe, FEV1 2020 is 32% Hypertension (Chronic 08/30/11) ALEXANDER (obstructive sleep apnea) (Chronic 07/17/15) BiPAP Family History Mother Hypertension Dementia Father Heart disease CHF Stroke Maternal Grandmother Stroke Social History Smoking/Tobacco Use Status: Former Tobacco Use Quit Date: 04/24/18 Pack-years: 30 Second Hand Exposure: Yes Smoking risk assessment performed?: Yes Alcohol Intake: current Alcohol Intake frequency: 3 or more drinks per day Alcohol type: beer Counseling given: No Drug use: Never Substance use type: does not use Adopted: No Caregiver/Support person: No Foster care: No Household members: spouse Housing: house Number of Children: 5 number of grandchildren: 17 Communication Needs: None Education Level: high school Do you need help understanding health information?: Rarely current occupation: [employer] Pets and animals: No Do you think of yourself as: straight/heterosexual Current gender identity: male What is your relationship status?: How often do you talk on the phone with friends or family?: twice per week How often do you get together with friends or relatives?: decline to answer Do you belong to any clubs or organized social groups?: no Panel score (0-1 are the most socially isolated patients): 1 What type of physical activity do you participate in: none Rupa/Anglican: Taoism Special rupa needs: No Seatbelt use: sometimes Helmet use: Yes Helmet use: always Drive intox or ride w/intox local city driver: No Working smoke detector in home: Yes Carbon monox detector in home: Yes Do you feel safe at home: Yes Do you feel safe in your relationship?: Yes
[2025-04-06] MEDS: Enoxaparin 40 MG/0.4 ML SYR SC (08:04)
[2025-04-06] MEDS: Doxycycline Hyclate 100 MG CAP PO (08:04)
[2025-04-06] MEDS: Lisinopril 20 MG TAB 40 MG PO (08:05)
[2025-04-06] MEDS: predniSONE 20 MG TAB 40 MG PO (08:05)
[2025-04-06] MEDS: guaiFENesin 600 MG TABCR PO (08:05)
[2025-04-06] MEDS: hydroCHLOROthiazide 25 MG TAB PO (08:05)
[2025-04-06] MEDS: Simvastatin 20 MG TAB PO (08:06)
[2025-04-06] MEDS: Tiotropium Bromide-Respimat 10 PUFF INH 2 PUFF IH (08:15)
[2025-04-06 08:16] VITALS: PULSE 73; RESP 16; O2SAT 93
[2025-04-06] MEDS: Budesonide/Formoterol 80/4.5 6.9 GM 60 PUFF INH IH (08:16)
--- NOTE | 2025-04-06 09:18 | PHA.REVIEW2 ---
Pharmacy Admission Review Admission Clinical Review Admission Pharmacy Review: Discharge planning issues (Acute) Pneumonia (Acute) Acute hypoxic respiratory failure (Acute) Hyperlipidemia (Acute) umeclidinium (From Anoro Ellipta) Adverse Reaction (Unknown, Verified 04/05/25 16:36) throat irritation vilanterol (From Anoro Ellipta) Adverse Reaction (Unknown, Verified 04/05/25 16:36) throat irritation Resuscitation Status Full Code Height 7 in Weight 107 kg Pharmacy Admission Review Renal Dosing Renal Dosing: BUN 17 mg/dL (9-23) 04/06/25 05:57 Creatinine 0.81 mg/dL (0.73-1.18) 04/06/25 05:57 Medications needing adjustments: Reviewed (No dosage adjustment necessary at this time. Patient's Crcl ~89ml/min) Anticoagulation Anticoagulation: Hgb 14.6 g/dL (13.5-17.5) 04/06/25 05:57 Hct 42.2 % (40.0-50.0) 04/06/25 05:57 Plt Count 150 10^3/uL (130-400) 04/06/25 05:57 Creatinine 0.81 mg/dL (0.73-1.18) 04/06/25 05:57 DVT Prophylaxis: Reviewed (Enoxaparin 40mg daily ) Relevant Labs Relevant Labs: Sodium 136 mmol/L (136-145) 04/06/25 05:57 Potassium 4.0 mmol/L (3.5-5.1) 04/06/25 05:57 Chloride 102 mmol/L (98-107) 04/06/25 05:57 Electrolytes, C-Reactive P, ESR: Reviewed (Patient's electrolytes are stable and within normal limits) DM Control DM Control: Reviewed (Prediabetes reported in H&P, fasting blood glucose this morning was 140mg/dL) Cardiac Review Cardiac Review: Blood Pressure 129/81 Blood Pressure 115/73 Troponin I 7 ng/L (<54) 04/05/25 15:15 NT-Pro-B Natriuret Pep 69 pg/mL (<300) 04/05/25 14:18 NT-Pro-B Natriuret Pep Cancelled 04/05/25 14:18 BP, HR, EF%: Reviewed QTc Review QTc: Reviewed (EKG run 04/05 pending interpretation/reading. No other recent QTc results available yet) Home Meds Home Med List reviewed: Reviewed Relevent Home Meds Not ordered & why?: Outpatient Zepbound not ordered yet, pt uses weekly Current Meds Current Medication Order Review: Reviewed Pharmacy Antibiotic Review Relevant Labs: Relevant Labs 04/05/25 15:15 Procalcitonin < 0.10 Comments: Patient on ceftriaxone and oral doxycycline combination regimen for pneumonia
--- NOTE | 2025-04-06 10:34 | DSE_ITS ---
Date of service: 04/06/25 Time of Service: 10:34 DS: Diagnosis Discharge Diagnosis (1) Acute hypoxic respiratory failure: Status: Acute (2) Pneumonia: Status: Acute (3) COPD with exacerbation: Status: Chronic (4) Tobacco use disorder: Status: Chronic (5) Hyperlipidemia: Status: Acute (6) ALEXANDER (obstructive sleep apnea): Status: Chronic (7) Obesity: Status: Chronic Discharge Plan Disposition Patient Disposition: Home Condition: Improving Discharge Details Reason For Visit: hypoxic resp failure Admit Date/Time: 04/05/25 16:37 Admit Provider: Reggie Sánchez Attending Provider: Reggie Sánchez Primary Care Provider: Graciela Fowler Hospital Course Hospital Course: This is a 64 year old, former smoker, history of COPD presented yesterday to the ED with c/o shortness of breath and cough found to have acute hypoxic resp failure secondary to copd exacerbation from pneumonia. He was trialed on room air for ambulation after receiving IV steroids, albuterol, duoneb and IV steroids but unable to be weaned off so hospitalist services asked to admit. overnight he rested comfortably and was successfully weaned off. He remained hemodynamically stable and eating and drinking. he feels ready for discharge to home. he will complete 5 day steroid burst and 5 day course of antibiotics discharged on doxycycline and cefpodoxime. discharged home with no services. discussed with Dr Turner Home Meds and New Rx's Prescriptions: New doxycycline hyclate 100 mg Capsule 100 mg PO BID Qty: 9 0RF prednisone 20 mg Tablet 40 mg PO DAILY Qty: 8 0RF cefpodoxime 200 mg tablet 200 mg PO BID Qty: 9 0RF Rx Instructions: must administer with a meal/food Continued simvastatin 20 mg tablet 20 mg PO DAILY Qty: 90 3RF bisacodyl [Dulcolax (bisacodyl)] 1 tab PO DAILY PRN albuterol sulfate 90 mcg/actuation HFA aerosol inhaler 2 puff inhalation Q6H PRN (Reason: shortness of breath or wheezing) Qty: 8.5 1RF Trelegy Ellipta 100-62.5-25 mcg blister with device 1 inh inhalation DAILY Qty: 60 12RF Zepbound 12.5 mg/0.5 mL pen injector 12.5 mg subcut QWEEK Qty: 2 5RF Zepbound 10 mg/0.5 mL pen injector 10 mg subcut QWEEK Qty: 2 0RF lisinopril 40 mg tablet See Rx Instructions .ROUTE .COMPLEX Qty: 90 3RF Dose Instruction: TAKE ONE TABLET BY MOUTH EVERY DAY Rx Instructions: TAKE ONE TABLET BY MOUTH EVERY DAY hydrochlorothiazide 25 mg tablet 25 mg PO DAILY Qty: 90 3RF Discharge Instructions Instructions: Pneumonia in adults Additional Instructions: complete steroids and antibiotics as directed push fluids to stay well hydrated. Stand Alone Forms: Portal Information Referrals: Graciela Fowler NP [Primary Care Provider, Medicine] Activity:: Activity as Tolerated Equipment/Supplies:: No Equipment Needed Diet:: As Tolerated Discharge Orders Discharge Orders: Discharge Order (Routine); Ordered 04/06/25 Ordered By: Em Story DS: Summary Time Spent with Patient providing and/or coordinating discharge services: Less than 30 minutes Status at Discharge Functional status at discharge: independent ambulation Overall status at discharge: patient is progressing back to baseline Mental Status: mental status grossly normal Speech and Movement: speech and movement normal Mood: congruent mood Affect: normal affect Exam Narrative Exam Narrative: White male stated age no acute distress face is flushed head is atraumatic eyes nonicteric noninjected oral mucosa is slightly dry neck is supple full range of motion cardiovascular regular rate and rhythm his respirations are even and unlabored he is clear bilaterally no wheezing or coarse breath sounds dim in the bases abdomen round nontender neurologic he is awake alert oriented no focal deficits psychiatric appropriate mood and affect Psych Mental Status: mental status grossly normal Speech and Movement: speech and movement normal Mood: congruent mood Affect: normal affect DS: Data Vitals/I&O Vitals and I&O: Vital Signs Temperature 36.6 C 04/06/25 07:06 Temperature Source Temporal Artery Scan 04/06/25 07:06 Pulse 73 04/06/25 08:16 Pulse 94 H 04/05/25 16:30 Respiratory Rate 16 04/06/25 08:16 Respiratory Effort Normal 04/05/25 18:08 Respiratory Depth Normal 04/05/25 18:08 Respiratory Pattern Normal 04/05/25 18:08 Blood Pressure 129/81 04/06/25 07:06 Blood Pressure Mean 97 04/06/25 07:06 Pulse Oximetry 93 04/06/25 08:16 Oxygen Delivery Method Room Air 04/06/25 08:16 Oxygen Flow Rate 0 04/06/25 08:16 Pain Level 0 04/06/25 09:49 Intake & Output 04/05/25 04/05/25 04/06/25 11:59 23:59 11:59 Intake Total 660 / 660 360 / 360 Balance 660 / 660 360 / 360 Weight 107 kg Intake: IV 660 / 660 Oral 360 / 360 Other: Urine Color Bates Urine Appearance Clear Urine Odor None Comment pt voids independently Data Completed and Pending Pending Labs at Discharge: 04/05/25 04/05/25 04/05/25 13:25 13:51 14:18 WBC 9.02 RBC 4.71 Hgb 14.9 Hct 43.8 MCV 93 MCH 31.6 MCHC 34.0 RDW 12.4 Plt Count 167 MPV 9.8 Immature Gran % 0.2 Neutrophils % 81.2 Lymphocytes % 6.1 Monocytes % 12.1 Eosinophils % 0.2 Basophils % 0.2 Nucleated RBC % 0.0 Absolute Neutrophils 7.32 H Absolute Lymphocytes 0.55 L Absolute Monocytes 1.09 H Absolute Eosinophils 0.02 Absolute Basophils 0.02 VBG pH 7.40 VBG pCO2 51 VBG pO2 30 VBG HCO3 31 H VBG Total CO2 28 VBG O2 Saturation 60 VBG Base Excess 7 H VBG Lactate Cancelled Sodium Potassium Chloride Carbon Dioxide Anion Gap BUN Creatinine Est GFR (CKD-EPI 2020) Glucose Calcium Total Bilirubin AST ALT Alkaline Phosphatase Troponin I NT-Pro-B Natriuret Pep Total Protein Albumin Procalcitonin Urine Color Urine Clarity Urine pH Ur Specific [place] Urine Protein Urine Ketones Urine Blood Urine Nitrite Urine Bilirubin Urine Urobilinogen Ur Leukocyte Esterase Urine RBC Urine WBC Ur Epithelial Cells Urine Crystals Urine Bacteria Urine Casts Urine Mucus Ur Culture Indicated? Urine Glucose COVID-19 Source Nasopharynx Cancelled SARS-CoV-2 (PCR) Negative Cancelled Influenza Type A (PCR) Negative Cancelled Influenza Type B (PCR) Negative Cancelled RSV (PCR) Negative Cancelled 04/05/25 04/05/25 04/05/25 14:18 14:18 14:18 WBC RBC Hgb Hct MCV MCH MCHC RDW Plt Count MPV Immature Gran % Neutrophils % Lymphocytes % Monocytes % Eosinophils % Basophils % Nucleated RBC % Absolute Neutrophils Absolute Lymphocytes Absolute Monocytes Absolute Eosinophils Absolute Basophils VBG pH VBG pCO2 VBG pO2 VBG HCO3 VBG Total CO2 VBG O2 Saturation VBG Base Excess VBG Lactate 1.0 Sodium 138 Potassium 3.7 Chloride 101 Carbon Dioxide 30.5 Anion Gap 6.5 BUN 18 Creatinine 1.05 Est GFR (CKD-EPI 2020) 71.48 Glucose 99 Calcium 9.0 Total Bilirubin 0.50 AST 30 ALT 32 Alkaline Phosphatase 70 Troponin I 8 Cancelled NT-Pro-B Natriuret Pep 69 Cancelled Total Protein 6.9 Albumin 4.3 Procalcitonin Urine Color Urine Clarity Urine pH Ur Specific [place] Urine Protein Urine Ketones Urine Blood Urine Nitrite Urine Bilirubin Urine Urobilinogen Ur Leukocyte Esterase Urine RBC Urine WBC Ur Epithelial Cells Urine Crystals Urine Bacteria Urine Casts Urine Mucus Ur Culture Indicated? Urine Glucose COVID-19 Source SARS-CoV-2 (PCR) Influenza Type A (PCR) Influenza Type B (PCR) RSV (PCR) 04/05/25 04/05/25 04/06/25 15:15 19:00 05:57 WBC 8.35 RBC 4.53 Hgb 14.6 Hct 42.2 MCV 93 MCH 32.2 MCHC 34.6 RDW 12.5 Plt Count 150 MPV 10.4 Immature Gran % 0.4 Neutrophils % 87.8 Lymphocytes % 5.6 Monocytes % 6.1 Eosinophils % 0.0 Basophils % 0.1 Nucleated RBC % 0.0 Absolute Neutrophils 7.33 H Absolute Lymphocytes 0.47 L Absolute Monocytes 0.51 Absolute Eosinophils 0.00 Absolute Basophils 0.01 VBG pH VBG pCO2 VBG pO2 VBG HCO3 VBG Total CO2 VBG O2 Saturation VBG Base Excess VBG Lactate Sodium 136 Potassium 4.0 Chloride 102 Carbon Dioxide 27.8 Anion Gap 6.2 BUN 17 Creatinine 0.81 Est GFR (CKD-EPI 2020) 96.44 Glucose 140 H Calcium 8.6 Total Bilirubin AST ALT Alkaline Phosphatase Troponin I 7 NT-Pro-B Natriuret Pep Total Protein Albumin Procalcitonin < 0.10 Urine Color Yellow Urine Clarity Clear Urine pH 6.5 Ur Specific [place] 1.020 Urine Protein 30 H Urine Ketones Trace H Urine Blood Negative Urine Nitrite Negative Urine Bilirubin Negative Urine Urobilinogen 1.0 H Ur Leukocyte Esterase Negative Urine RBC 0-2 Urine WBC 0-2 Ur Epithelial Cells Rare Urine Crystals Negative Urine Bacteria Rare Urine Casts Negative Urine Mucus Moderate Ur Culture Indicated? No Urine Glucose Negative COVID-19 Source SARS-CoV-2 (PCR) Influenza Type A (PCR) Influenza Type B (PCR) RSV (PCR) Preliminary micro results at discharge 04/05/25 17:20 Blood Blood Culture - Pending 04/05/25 14:18 Blood Blood Culture - Pending [facility] All Active Problems (Updated 04/05/25 @ 17:15 by AUDREY Lorenzana) Discharge planning issues (Acute) Pneumonia (Acute) Acute hypoxic respiratory failure (Acute) Fatigue (Acute) Screening for prostate cancer (Acute) Former smoker (Acute) Pre-diabetes (Acute) Obesity (Chronic) Adult BMI 39.0-39.9 kg/sq m (Acute 06/23/20) Hyperlipidemia (Acute) Lung cancer screening declined by patient (Acute) Colonoscopy refused (Acute) COPD with exacerbation (Chronic) Never been previously treated with bronchodilators or other COPD medicatons. Ongoing tobacco use. Tobacco use disorder (Chronic) COPD (chronic obstructive pulmonary disease) (Chronic 04/28/13) Severe, FEV1 2020 is 32% Hypertension (Chronic 08/30/11) ALEXANDER (obstructive sleep apnea) (Chronic 07/17/15) BiPAP Family History Mother Hypertension Dementia Father Heart disease CHF Stroke Maternal Grandmother Stroke Social History Smoking/Tobacco Use Status: Former Tobacco Use Quit Date: 04/24/18 Pack-years: 30 Second Hand Exposure: Yes Smoking risk assessment performed?: Yes Alcohol Intake: current Alcohol Intake frequency: 3 or more drinks per day Alcohol type: beer Counseling given: No Drug use: Never Substance use type: does not use Adopted: No Caregiver/Support person: No Foster care: No Household members: spouse Housing: house Number of Children: 5 number of grandchildren: 17 Communication Needs: None Education Level: high school Do you need help understanding health information?: Rarely current occupation: [employer] Pets and animals: No Do you think of yourself as: straight/heterosexual Current gender identity: male What is your relationship status?: How often do you talk on the phone with friends or family?: twice per week How often do you get together with friends or relatives?: decline to answer Do you belong to any clubs or organized social groups?: no Panel score (0-1 are the most socially isolated patients): 1 What type of physical activity do you participate in: none Rupa/Taoist: Protestant Special rupa needs: No Seatbelt use: sometimes Helmet use: Yes Helmet use: always Drive intox or ride w/intox livery car driver: No Working smoke detector in home: Yes Carbon monox detector in home: Yes Do you feel safe at home: Yes Do you feel safe in your relationship?: Yes Time Spent with Patient Time Spent with Patient: <45 minutes Time was spent: preparing to see the patient(eg.review tests), ordering medications,tests, procedures and counseling the patient
--- NOTE | 2025-04-06 10:52 | PDOC.CMDIS ---
Date of service: 04/06/25 Time of Service: 10:53 LACE Index Scoring Tool Questions: Length of Stay (in days): 1 Was the patient admitted via the E.D.?: Yes Comorbidities: Chronic Pulmonary Disease E.D. Visits: 1 Answers: Total Score: 7 Risk of Readmission: Low Risk Care Management Discharge Plan Reason for Hospitalization: Hypoxic respiratory failure. Discharge Plan: Cosme is being discharged home today, with no new services indicated. It is recommended he follow up with his community provider (already has an appointment for this week), and discharge plan of care. He will transport via private vehicle by his . Cosme was provided a work note prior to discharge. Patient/Family Education Needs: Review of discharge instruction, activity, limitations, and plan of care. Discuss ask me three.
== END 2025-04-06 12:41 | disposition home or self-care (01) ==
LOC: ER 17:16 → MS 17:56
PROVIDERS: Admitting Provider Family Medicine; Emergency Provider Physician Assistant; PCP Nurse Practitioner; Responsible Provider Nurse Practitioner Acute Care; Visit Provider Family Medicine
DX: J18.9 Pneumonia, unspecified organism (principal); J96.01 Acute respiratory failure with hypoxia; J44.0 Chronic obstructive pulmonary disease with (acute) lower respiratory infection; J44.1 Chronic obstructive pulmonary disease with (acute) exacerbation; Z87.891 Personal history of nicotine dependence; G47.33 Obstructive sleep apnea (adult) (pediatric); E66.9 Obesity, unspecified; Z68.36 Body mass index [BMI] 36.0-36.9, adult; E78.5 Hyperlipidemia, unspecified; R73.03 Prediabetes; I10 Essential (primary) hypertension
CPT/HCPCS: 00123; 36415; 80048; 80053; 82805; 84145; 87040; 87637; 93005; 94640; 96361; 96365; 96368; 96375; 99291; J1650; 71046; 81003; 81015; 83605; 83880; 84484; 85025; 93010; 94664; 94667; 94760; 99222; 99238; G0378; J0696; J2919; J7512; J7620

== ENCOUNTER 2025-04-11 07:44 | Outpatient (CLI) | payer OTHER, SELFPAY ==
[2025-04-11 08:01] LABS: Hemoglobin A1C 5.2 % (<5.7)
[2025-04-11 08:15] LABS: Cholesterol 159 mg/dL (<200); HDL Cholesterol 51 mg/dL (>40)
[2025-04-11 18:00] LABS: PSA, Screening 2.6 ng/mL (<=4.5)
== END 2025-04-11 07:45 | disposition home or self-care (01) ==
LOC: LBO 07:45
PROVIDERS: PCP Nurse Practitioner
DX: Z00.00 Encounter for general adult medical examination without abnormal findings (principal)
CPT/HCPCS: 36415; 80061; 84153; 83036